=== PATIENT | male | born 1955 | race Caucasian/White ===

== ENCOUNTER 2023-01-19 19:13 | Emergency (ER) | payer OTHER ==
[2023-01-19 20:18] LABS: Specific Gravity 1.029 (1.005-1.030); Urine Bacteria None Seen /HPF (<20); Urine Bilirubin NEGATIVE (Negative); Urine Blood Negative (Negative); Urine Clarity Clear (Clear); Urine Color Light-Yellow (Yellow); Urine Glucose NEGATIVE (Negative); Urine Mucus Slight /HPF (None Seen); Urine Protein NEGATIVE (Negative); Urine RBC <5 /HPF (None Seen); Urine Urobilinogen Normal (Normal); Urine pH 5.5 (5.0-7.0)
--- NOTE | 2023-01-19 20:35 | RAD REPORT ---
EXAM DESCRIPTION: CT - Stone Protocol - 01/19/2023 8:21 pm CLINICAL HISTORY: Abdominal pain. Flank pain. Dysuria COMPARISON: None. TECHNIQUE: Computed axial tomography of the abdomen pelvis was obtained without oral or IV contrast. Lack of IV and oral contrast limits evaluation of solid organs, appendix, bowel, and vessels. Kaye l reformatted images were obtained and reviewed. All CT scans are performed using dose optimization technique as appropriate and may include automated exposure control or mA/KV adjustment according to patient size. FINDINGS: A renal calculus is not seen. An ureteral calculus is not noted. A bladder calculus is not present. No hydronephrosis. Prostate gland is moderately enlarged. Small right inguinal hernia contains fat. Small umbilical hernia. Spondylosis L5-S1 The liver, spleen, pancreas and adrenals appear grossly normal There is no evidence of diverticulitis. The appendix appears normal IMPRESSION: Negative for a genitourinary calculus
[2023-01-19] MEDS ORDERED: KETOROLAC 30 MG/ML INJ ONE (20:52)
[2023-01-19] MEDS ORDERED: DOXAZOSIN 4 MG TAB ONE (21:05)
--- NOTE | 2023-01-19 21:49 | ER ---
Nurse's Notes [facility] Name: Colt Jarquin Age: 67 yrs Sex: Male : 1955 Arrival Date: 01/19/2023 Time: 19:13 Bed 13 Private MD: Diagnosis: Other spondylosis, lumbosacral region;Enlarged prostate with lower urinary tract symptoms Presentation: 01/19 19:40 Chief complaint: Patient states: I am having some low back pain that's started on kd3 Friday. Coronavirus screen: Vaccine status:. Ebola Screen: No symptoms or risks identified at this time. Initial Sepsis Screen: Does the patient meet any 2 criteria? No. Patient's initial sepsis screen is negative. Does the patient have a suspected source of infection? No. Patient's initial sepsis screen is negative. Risk Assessment: Do you want to hurt yourself or someone else? Patient reports no desire to harm self or others. Onset of symptoms was January 19, 2023. 19:40 Method Of Arrival: Wheelchair kd3 19:40 Acuity: ERNIE 3 kd3 Triage Assessment: 19:41 General: Appears uncomfortable, Behavior is calm, cooperative. Pain: Complains of pain kd3 in left low back and right low back. Neuro: Level of Consciousness is awake, alert, obeys commands, Oriented to person, place, time, situation. Historical: - Allergies: 19:41 No Known Allergies; kd3 - Immunization history:: Adult Immunizations up to date. - Social history:: Smoking status: unknown. Screenin:48 [facility] ED Fall Risk Assessment (Adult) History of falling in the last 3 months, mb9 including since admission No falls in past 3 months (0 pts) Confusion or Disorientation No (0 pts) Intoxicated or Sedated No (0 pts) Impaired Gait No (0 pts) Mobility Assist Device Used No (0 pt) Altered Elimination No (0 pt) Score/Fall Risk Level 0 - 2 = Low Risk Oriented to surroundings, Maintained a safe environment, Educated pt \T\ family on fall prevention, incl call for assistance when getting out of bed. Abuse screen: Denies threats or abuse. Nutritional screening: No deficits noted. Tuberculosis screening: No symptoms or risk factors identified. Assessment: 19:47 General: Appears in no apparent distress. Behavior is cooperative. Pain: Complains of mb9 pain in back Pain does not radiate. Neuro: Dorantes Agitation-Sedation Scale (RASS): 0 - Alert and Calm Level of Consciousness is awake, alert, obeys commands, Oriented to person, place, time, situation, Appropriate for age. Respiratory: Airway is patent Respiratory effort is even, unlabored, Respiratory pattern is regular, symmetrical. : Reports burning with urination, since today. Derm: Skin is pink, warm \T\ dry. Musculoskeletal: Range of motion: intact in all extremities. Vital Signs: 19:40 BP 155 / 87; Pulse 92; Resp 16; Temp 97.3(O); Pulse Ox 99% ; Weight 72.57 kg; Height 5 kd3 ft. 8 in. ; 20:04 Temp 99.1; snw 21:09 BP 151 / 119; Pulse 84; Resp 18; Pulse Ox 100% on R/A; mb9 21:30 BP 136 / 76; Pulse 73; Resp 16; Pulse Ox 97% on R/A; mb9 19:40 Body Mass Index 24.33 (72.57 kg, 172.72 cm) kd3 ED Course: 19:21 Patient arrived in ED. ja2 19:22 Kristy Davise FNP-C is [facility]. snw 19:22 Trino Davalos MD is Attending Physician. snw 19:39 Melinda Dial, BONILLA is Primary Nurse. mb9 19:39 Arm band placed on. mb9 19:41 Triage completed. kd3 19:48 Bed in low position. Call light in reach. Side rails up X 1. Client placed on mb9 continuous cardiac and pulse oximetry monitoring. NIBP monitoring applied. concessionist on. 19:48 No provider procedures requiring assistance completed. mb9 20:09 Urine W/Microscopic (UAM) Sent. mb9 20:22 CT Stone Protocol In Process Unspecified. EDMS 22:07 Patient did not have IV access during this emergency room visit. mb9 Administered Medications: 21:02 Drug: Ketorolac IM 60 mg Route: IM; Site: right gluteus; mb9 21:29 Follow up: Response: No adverse reaction mb9 21:09 Drug: Doxazosin PO 4 mg Route: PO; mb9 21:29 Follow up: Response: No adverse reaction mb9 Medication: 19:48 VIS not applicable for this client. mb9 Outcome: 21:48 Discharge ordered by MD. moon 22:07 Discharged to home ambulatory. mb9 22:07 Condition: stable 22:07 Discharge instructions given to patient, Instructed on discharge instructions, follow up and referral plans. Demonstrated understanding of instructions, follow-up care, medications, Prescriptions given X 2. 22:07 Patient left the ED. mb9 Signatures: Dispatcher [employer] EDMS Kristy Davies, RAIL CAR OPERATOR-C RAIL CAR OPERATOR-Csnw Ana Laura Myrick Kyli, RN RN kd3 Melinda Dial RN RN mb9
--- NOTE | 2023-01-19 21:49 | EDPHYS ---
Physician Documentation [facility] Name: Colt Jarquin Age: 67 yrs Sex: Male : 1955 Arrival Date: 01/19/2023 Time: 19:13 Bed 13 Private MD: ED Physician Trino Davalos HPI: 01/19 20:03 This 67 yrs old Male presents to ER via Wheelchair with complaints of Low Back Pain, snw Pain With Urination. 20:03 The patient presents with pain that is acute, with no known mechanism of injury. The snw symptoms are located in the low back. The problem was sustained without known cause. Onset: The symptoms/episode began/occurred suddenly, 3 day(s) ago, and became persistent. Associated signs and symptoms: Pertinent positives: dysuria. Severity of symptoms: At their worst the symptoms were moderate. The patient has not experienced similar symptoms in the past. The patient has not recently seen a physician, and does not have an established primary care provider. denies trauma, fever, . Historical: - Allergies: 19:41 No Known Allergies; kd3 - Immunization history:: Adult Immunizations up to date. - Social history:: Smoking status: unknown. ROS: 20:02 Constitutional: Negative for fever, chills, and weight loss, Eyes: Negative for injury, snw pain, redness, and discharge, ENT: Negative for injury, pain, and discharge, Neck: Negative for injury, pain, and swelling, Cardiovascular: Negative for chest pain, palpitations, and edema, Respiratory: Negative for shortness of breath, cough, wheezing, and pleuritic chest pain, Abdomen/GI: Negative for abdominal pain, nausea, vomiting, diarrhea, and constipation, MS/Extremity: Negative for injury and deformity, Skin: Negative for injury, rash, and discoloration, Neuro: Negative for headache, weakness, numbness, tingling, and seizure, Psych: Negative for depression, anxiety, suicide ideation, homicidal ideation, and hallucinations. 20:02 Back: Positive for decreased range of motion, pain with movement, radiated pain, of the left low back. 20:02 : Positive for urinary symptoms, burning with urination. Exam: 20:01 Constitutional: This is a well developed, well nourished patient who is awake, alert, snw and in no acute distress. Head/Face: Normocephalic, atraumatic. Eyes: Pupils equal round and reactive to light, extra-ocular motions intact. Lids and lashes normal. Conjunctiva and sclera are non-icteric and not injected. Cornea within normal limits. Periorbital areas with no swelling, redness, or edema. ENT: Nares patent. No nasal discharge, no septal abnormalities noted. Tympanic membranes are normal and external auditory canals are clear. Oropharynx with no redness, swelling, or masses, exudates, or evidence of obstruction, uvula midline. Mucous membranes moist. Neck: Trachea midline, no thyromegaly or masses palpated, and no cervical lymphadenopathy. Supple, full range of motion without nuchal rigidity, or vertebral point tenderness. No Meningismus. Chest/axilla: Normal chest wall appearance and motion. Nontender with no deformity. No lesions are appreciated. Cardiovascular: Regular rate and rhythm with a normal S1 and S2. No gallops, murmurs, or rubs. Normal PMI, no JVD. No pulse deficits. Respiratory: Lungs have equal breath sounds bilaterally, clear to auscultation and percussion. No rales, rhonchi or wheezes noted. No increased work of breathing, no retractions or nasal flaring. Abdomen/GI: Soft, non-tender, with normal bowel sounds. No distension or tympany. No guarding or rebound. No evidence of tenderness throughout. Back: No spinal tenderness. No costovertebral tenderness. Full range of motion. Skin: Warm, dry with normal turgor. Normal color with no rashes, no lesions, and no evidence of cellulitis. MS/ Extremity: Pulses equal, no cyanosis. Neurovascular intact. Full, normal range of motion. Neuro: Awake and alert, GCS 15, oriented to person, place, time, and situation. Cranial nerves II-XII grossly intact. Motor strength 5/5 in all extremities. Sensory grossly intact. Cerebellar exam normal. Gait not tested Psych: Awake, alert, with orientation to person, place and time. Behavior, mood, and affect are within normal limits. Vital Signs: 19:40 BP 155 / 87; Pulse 92; Resp 16; Temp 97.3(O); Pulse Ox 99% ; Weight 72.57 kg; Height 5 kd3 ft. 8 in. ; 20:04 Temp 99.1; snw 21:09 BP 151 / 119; Pulse 84; Resp 18; Pulse Ox 100% on R/A; mb9 21:30 BP 136 / 76; Pulse 73; Resp 16; Pulse Ox 97% on R/A; mb9 19:40 Body Mass Index 24.33 (72.57 kg, 172.72 cm) kd3 MDM: 19:30 Patient medically screened. snw 21:49 Differential diagnosis: arthritis, sciatica, contusion, UTI. Data reviewed: vital snw signs, nurses notes, lab test result(s), radiologic studies. I considered the following discharge prescriptions or medication management in the emergency department Medications were administered in the Emergency Department. See MAR. Counseling: I had a detailed discussion with the patient and/or guardian regarding: the historical points, exam findings, and any diagnostic results supporting the discharge/admit diagnosis, the presence of at least one elevated blood pressure reading (>120/80) during this emergency department visit, lab results, radiology results, the need for outpatient follow up, for definitive care, to return to the emergency department if symptoms worsen or persist or if there are any questions or concerns that arise at home. Response to treatment: the patient's symptoms have mildly improved after treatment. Special discussion: I have referred the patient to see his PCP for further evaluation of high blood pressure. Based on the history and exam findings, there is no indication for further emergent testing or inpatient evaluation. I discussed with the patient/guardian the need to see the primary care provider for further evaluation of the symptoms. 01/19 20:03 Order name: Urine W/Microscopic (UAM); Complete Time: 20:19 snw 01/19 20:03 Order name: CT Stone Protocol; Complete Time: 20:37 snw 01/19 21:19 Order name: Recheck B/P; Complete Time: 21:32 snw Administered Medications: 21:02 Drug: Ketorolac IM 60 mg Route: IM; Site: right gluteus; mb9 21:29 Follow up: Response: No adverse reaction mb9 21:09 Drug: Doxazosin PO 4 mg Route: PO; mb9 21:29 Follow up: Response: No adverse reaction mb9 Disposition: 01/20 13:10 Co-signature as Attending Physician, Trino Davalos MD I agree with the assessment and kdr plan of care. Disposition Summary: 01/19/23 21:48 Discharge Ordered Location: Home snw Condition: Stable snw Diagnosis - Other spondylosis, lumbosacral region snw - Enlarged prostate with lower urinary tract symptoms snw Followup: snw - With: Emergency Department - When: As needed - Reason: Worsening of condition Followup: snw - With: Private Physician - When: 2 - 3 days - Reason: Recheck today's complaints, Continuance of care, Re-evaluation by your physician Discharge Instructions: - Discharge Summary Sheet snw - Lumbosacral Radiculopathy snw - Benign Prostatic Hyperplasia snw Forms: - Medication Reconciliation Form snw - Thank You Letter snw - Antibiotic Education snw - Prescription Opioid Use snw - [email or web address] snw Prescriptions: - Mobic 7.5 mg Oral Tablet - take 1 tablet by ORAL route once daily take with food; 20 tablet; Refills: 0, snw Product Selection Permitted - Doxazosin 4 mg Oral Tablet - take 1 tablet by ORAL route once daily; 30 tablet; Refills: 0, Product snw Selection Permitted Signatures: Dispatcher [id number] EDMS Trino Davalos MD MD kdr Waters, Shelly, DOG HAIR CLIPPER-C DOG HAIR CLIPPER-Csnw Mahogany Jin RN RN kd3 Melinda Dial RN RN mb9 Corrections: (The following items were deleted from the chart) 01/19 20:02 20:01 Constitutional: This is a well developed, well nourished patient who is awake, snw alert, and in no acute distress. Head/Face: Normocephalic, atraumatic. Eyes: Pupils equal round and reactive to light, extra-ocular motions intact. Lids and lashes normal. Conjunctiva and sclera are non-icteric and not injected. Cornea within normal limits. Periorbital areas with no swelling, redness, or edema. ENT: Nares patent. No nasal discharge, no septal abnormalities noted. Tympanic membranes are normal and external auditory canals are clear. Oropharynx with no redness, swelling, or masses, exudates, or evidence of obstruction, uvula midline. Mucous membranes moist. Neck: Trachea midline, no thyromegaly or masses palpated, and no cervical lymphadenopathy. Supple, full range of motion without nuchal rigidity, or vertebral point tenderness. No Meningismus. Chest/axilla: Normal chest wall appearance and motion. Nontender with no deformity. No lesions are appreciated. Cardiovascular: Regular rate and rhythm with a normal S1 and S2. No gallops, murmurs, or rubs. Normal PMI, no JVD. No pulse deficits. Respiratory: Lungs have equal breath sounds bilaterally, clear to auscultation and percussion. No rales, rhonchi or wheezes noted. No increased work of breathing, no retractions or nasal flaring. Abdomen/GI: Soft, non-tender, with normal bowel sounds. No distension or tympany. No guarding or rebound. No evidence of tenderness throughout. Back: No spinal tenderness. No costovertebral tenderness. Full range of motion. Skin: Warm, dry with normal turgor. Normal color with no rashes, no lesions, and no evidence of cellulitis. MS/ Extremity: Pulses equal, no cyanosis. Neurovascular intact. Full, normal range of motion. Neuro: Awake and alert, GCS 15, oriented to person, place, time, and situation. Cranial nerves II-XII grossly intact. Motor strength 5/5 in all extremities. Sensory grossly intact. Cerebellar exam normal. Normal gait. Psych: Awake, alert, with orientation to person, place and time. Behavior, mood, and affect are within normal limits. snw
[2023-01-19 22:14] VITALS: TEMP 99.1
[2023-01-19 22:17] VITALS: BP 136/76; O2SAT 97
[2023-01-20] MEDS ORDERED: ONDANSETRON 4 MG/2 ML VIAL ONE (00:01)
[2023-01-20] MEDS ORDERED: NA CHLORIDE 0.9% 0 ML ONE (00:01)
== END 2023-01-19 22:07 | disposition home or self-care (01) ==
LOC: ER 19:13
DX: M47.897 Other spondylosis, lumbosacral region (principal); N40.1 Benign prostatic hyperplasia with lower urinary tract symptoms
CPT/HCPCS: 74176; 76377; 81001; 96372; 99285